=== PATIENT | female | born 1985 | race Caucasian/White ===

== ENCOUNTER 2017-03-21 15:48 | Emergency (ER) | payer OTHER ==
[~2017-03-21] VITALS: Ht 167.6 cm; Wt 72.6 kg
[~2017-03-21 15:48] MED LIST: IBP600T1 PO; PREN1TAB64 PO
--- OUTSIDE RECORDS SUMMARY | 2017-03-21 15:54 | XMS REPORT ---
Author Author PEDRO COX [facility] [place] eClinicalWorks Address Unknown Phone Unavailable Care Team Providers Care Environmental Services Specialist Name Role Phone PEDRO COX CP Unavailable Allergies, Adverse Reactions, Alerts Substance Reaction Event Type Morphine Sulfate Info Not Available Drug Allergy Problems Problem Type Condition Code Onset Dates Condition Status Assessment Dental examination Z01.20 Active Problem Pediatric pre- visit for expectant mother V65.11 Active Medications Medication Code System Code Instructions Start Date End Date Status Dosage Amoxicillin [facility] [address]-55 not defined Procedures Procedure Coding System Code Date INTRAORL-PERIAPICAL 1 FILM 06395 CPT-4 D0220 Aug 26, 2015 BITEWING - SINGLE FILM CPT-4 D0270 Aug 26, 2015 LTD ORAL EVALUATION - PROBLEM FOCUS CPT-4 D0140 Aug 26, 2015 Vital Signs Date/Time: Aug 26, 2015 Blood Pressure Diastolic 62 mmHg Blood Pressure Systolic 104 mmHg Results No Known Results Summary Purpose eClinicalWorks Submission
--- NOTE | 2017-03-21 16:23 | ED Psychosocial ---
General Chief Complaint: Psych/Social Disorder Stated Complaint: PANIC ATTACK/SOB Nursing Triage Note: PT STATES HAVING A PANIC ATTACK YESTERDAY FOR UNKNOWN CAUSE THAT LASTED ABOUT AN HOUR AND THEN HAD ANOTHER ONE TODAY THAT STARTED ABOUT 1430. PT CALLED [facility] AND SPOKE WITH SOMEONE WHO DIDN'T HELP MATTERS. NO MAJOR HX OF THIS UNTIL YESTERDAY, NO MEDICATION FOR ANXIETY. Source: patient Exam Limitations: no limitations History of Present Illness Time seen by provider: 16:22 Initial Comments 32 yo female patient presents to the ED with c/o a panic attack yesterday and one today. states she still feels tearful and anxious. reports symptoms started as "feeling like the world stopped" followed by palpitations, SOA, and tingling of the hands and lips. Denies any h/o anxiety or depression. denies suicidal or homicidal ideation. She denies any increased stress at home or work. states she called [facility] but felt more anxious after talking to them. Timing/Duration: yesterday, intermittent Associated Symptoms: anxiety Allergies and Home Medications Allergies Coded Allergies: Morphine (Verified Allergy, Unknown, 01/22/07) Home Medications Cefdinir 300 Mg Capsule, 300 MG PO BID, #9 Ref 0 Prescribed by: HARLEY KIRKPATRICK on 03/21/178 Hydroxyzine Pamoate 25 Mg Capsule, 25 MG PO Q6H PRN for ANXIETY, #20 Ref 0 Prescribed by: HARLEY KIRKPATRICK on 03/21/17 1818 Ibuprofen 600 Mg Tab, 600 MG PO Q6H PRN, (Reported) Vit/Fe Fumarate/Fa 1 Each Tablet, 1 EACH PO, (Reported) Constitutional: no symptoms reported EENTM: no symptoms reported Respiratory: No cough, No dyspnea on exertion, short of breath (SOA (resolved at this time)), No wheezing Cardiovascular: No chest pain, palpitations ((resolved at this time)), No syncope Gastrointestinal: No abdominal pain, No nausea, No vomiting Genitourinary: no symptoms reported Musculoskeletal: no symptoms reported Skin: no symptoms reported Psychiatric/Neurological: See HPI, Anxiety, Denies Depressed, Denies Headache, Denies Numbness, Denies Paresthesia, Tingling (perioral tingling and tingling of the hands (resolved at this time)), Denies Weakness All Other Systems Reviewed Negative Unless Noted: Yes (Negative excepted noted.) Past Bgbaupn-Jwayau-Yxnhob Hx Patient Social History Alcohol Use: Occasionally Uses Alcohol Beverage of Choice: Beer Recreational Drug Use: No Smoking Status: Never a Smoker Recent Foreign Travel: No Contact w/Someone Who Travel: No Recent Infectious Disease Expo: No Recent Hopitalizations: No (CHILDBIRTH) Seasonal Allergies Seasonal Allergies: No Surgeries History of Surgeries: Yes (TONSILLECTOMY) Surgeries: Tonsillectomy Respiratory History of Respiratory Disorde: No Cardiovascular History of Cardiac Disorders: No Neurological History of Neurological Disord: No Reproductive System : No Last Menstrual Period: Feb 27, 2017 Hx Reproductive Disorders: No Genitourinary History of Genitourinary Disor: No Gastrointestinal History of Gastrointestinal Di: No Musculoskeletal History of Musculoskeletal Dis: No Endocrine History of Endocrine Disorders: No HEENT History of HEENT Disorders: No Cancer History of Cancer: No Psychosocial History of Psychiatric Problem: Yes Behavioral Health Disorders: Anxiety Blood Transfusions History of Blood Disorders: No Reviewed Nursing Assessment Reviewed/Agree w Nursing PMH: Yes Family Medical History Significant Family History: No Pertinent Family Hx Physical Exam Vital Signs Capillary Refill : Less Than 3 Seconds General Appearance: WD/WN, no apparent distress, other (patient is tearful) HEENT: PERRL/EOMI, pharynx normal Neck: non-tender, full range of motion, supple, normal inspection, No thyromegaly Respiratory: lungs clear, normal breath sounds, no respiratory distress, no accessory muscle use Cardiovascular: normal peripheral pulses, regular rate, rhythm, no edema, no murmur Peripheral Pulses: 2+ Dorsalis Pedis (R), 2+ Left Dors-Pedis (L), 2+ Radial Pulses (R), 2+ Radial Pulses (L) Gastrointestinal: non tender, soft Extremities: no pedal edema, normal capillary refill 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, no motor/sensory deficits, alert, normal mood/affect, oriented x 3 Appearance/Memory: appropriate appearance, appropriate insight, neat, no memory impairment Behavior/Eye Contact: cooperative, good eye contact, normal speech Thoughts/Hallucinations: normal thought pattern, no apparent hallucination Skin: normal color, warm/dry Progress/Results/Core Measures Results/Orders Lab Results My Orders Medications Given in ED Vital Signs/I&O Blood Pressure Mean: 97 ECG Initial ECG Impression Date: Mar 21, 2017 Initial ECG Impression Time: 16:50 Initial ECG Rate: 83 Initial ECG Rhythm: Normal Sinus Initial ECG Intervals: Normal Initial ECG Impression: Normal Initial ECG Comparisson: No Previous ECG Available Comment sinus rhythm without STEMI or arrhythmia. ECG reviewed and discussed with Dr. Chowdary. Departure Communication Progress Notes Patient seen and evaluated. All laboratory and diagnostic findings discussed with the patient. Patient reports feeling much better with the Xanax given in the emergency department. Plan for discharge to home with oral Omnicef and Vistaril. Patient's follow-up with her primary care physician of choice for recheck and further evaluation. Patient call for appointment time. Impression Impression: Primary Impression: Urinary tract infection Qualified Codes: N30.00 - Acute cystitis without hematuria Additional Impression: Anxiety attack Disposition: HOME, SELF-CARE Condition: Improved Departure-Patient Inst. Decision time for Depature: 18:16 Referrals: NO,LOCAL PHYSICIAN (PCP/Family) Primary Care Physician Patient Instructions: Anxiety, Adult (DC), Urinary Tract Infection, Adult (DC) Add. Discharge Instructions: All discharge instructions reviewed with patient and/or family. Voiced understanding. Medications as instructed. Drink plenty of fluids. Follow-up with the primary care physician of your choice to establish care and for recheck. Call for appointment time. Return to the emergency department for worsened symptoms, shortness of air, chest pain, numbness, tingling, headache, changes in behavior, slurred speech, inability to urinate, blood in the urine, thoughts of harming yourself, thoughts of harming others, or any other concerns. Crisis Line [phone]. 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
[2017-03-21] MEDS ORDERED: ALPRAZolam 0.25 MG (XANAX) TAB PO ONE (17:00)
[2017-03-21 17:08] LABS: BASOPHILS % (AUTO) 0 % (0-10); EOSINOPHILS # (AUTO) 0.1 10^3/uL (0.0-0.3); EOSINOPHILS % (AUTO) 1 % (0-10); LYMPHOCYTES # (AUTO) 1.5 X 10^3 (1.0-4.0); LYMPHOCYTES % (AUTO) 19 % (12-44); MEAN CORPUSCULAR HEMOGLOBIN 28 PG (25-34); MEAN CORPUSCULAR HGB CONC 34 G/DL (32-36); MEAN CORPUSCULAR VOLUME 82 FL (80-99); MEAN PLATELET VOLUME 11.6 FL (7.4-10.4); MONOCYTES # (AUTO) 0.6 X 10^3 (0.0-1.0); MONOCYTES % (AUTO) 8 % (0-12); NEUTROPHILS # (AUTO) 5.8 X 10^3 (1.8-7.8); NEUTROPHILS % (AUTO) 73 % (42-75); PLATELET COUNT 231 10^3/uL (130-400); RED BLOOD COUNT 4.47 10^6/uL (4.35-5.85); RED CELL DISTRIBUTION WIDTH 13.2 % (10.0-14.5); WHITE BLOOD COUNT 7.9 10^3/uL (4.3-11.0)
[2017-03-21 17:29] LABS: BILIRUBIN,URINE NEGATIVE (NEGATIVE); KETONES,URINE NEGATIVE (NEGATIVE); LEUKOCYTE ESTERASE ,URINE 2+ (NEGATIVE); NITRITE,URINE NEGATIVE (NEGATIVE); PH,URINE 7 (5-9); PROTEIN,URINE NEGATIVE (NEGATIVE); UROBILINOGEN,URINE NORMAL (NORMAL)
[2017-03-21 17:29] LABS: ALANINE AMINOTRANSFERASE 11 U/L (0-55); ALBUMIN 4.4 GM/DL (3.2-4.5); ALCOHOL < 10 MG/DL (<10); ANION GAP 6 MMOL/L (5-14); ASPARTATE AMINO TRANSFERASE 15 U/L (5-34); BILIRUBIN,TOTAL 0.6 MG/DL (0.1-1.0); BLOOD UREA NITROGEN 9 MG/DL (7-18); BUN/CREATININE RATIO 11; CALCIUM 9.3 MG/DL (8.5-10.1); CARBON DIOXIDE 25 MMOL/L (21-32); CHLORIDE 108 MMOL/L (98-107); GFR ESTIMATED > 60; GLUCOSE 97 MG/DL (70-105); POTASSIUM 3.6 MMOL/L (3.6-5.0); SALICYLATE < 5.0 MG/DL (5.0-20.0); SODIUM 139 MMOL/L (135-145); TOTAL PROTEIN 7.4 GM/DL (6.4-8.2)
[2017-03-21 17:31] LABS: ACETAMINOPHEN < 10 UG/ML (10-30)
[2017-03-21] MEDS ORDERED: HYDR25CA PO (18:18)
[2017-03-21] MEDS ORDERED: CEFD300C3 PO (18:18)
[2017-03-21 18:28] VITALS: BP 108/68
== END 2017-03-21 18:28 | disposition home or self-care (01) ==
LOC: EDUNIT# 15:48 → ER 15:50
DX: F41.0 Panic disorder [episodic paroxysmal anxiety] (principal); N39.0 Urinary tract infection, site not specified; Z90.89 Acquired absence of other organs
CPT/HCPCS: 36415; 80053; 80306; 80320; 80329; 81000; 84443; 84703; 85025; 87088; 93005